=== PATIENT | male | born 1955 | race American Indian/Alaskan Native ===

== ENCOUNTER 2017-09-17 11:28 | Day surgery (SDC) | payer BC ==
[2017-09-17] MEDS ORDERED: DILAUDID IV PRN (12:56)
--- NOTE | 2017-09-17 12:58 | Anesthesia Consultation ---
Anesthesia Consult and Med Hx Date of service: 09/17/17 - Airway Anesthetic Teeth Evaluation: Good ROM Head & Neck: Adequate Mental/Hyoid Distance: Adequate Mallampati Class: Class II Intubation Access Assessment: Good - Pulmonary Exam CTA: Yes - Cardiac Exam Cardiac Exam: RRR - Pre-Operative Health Status ASA Pre-Surgery Classification: ASA3 Proposed Anesthetic Plan: General - Pulmonary Hx Smoking: No Hx Sleep Apnea: No (JAQUELIN PRE SCREEN HIGH RISK) - Cardiovascular System Hx Hypertension: Yes (X 10 YRS) - Endocrine Hx Hyperthyroidism: Yes (THYROID REMOVED , BUT ON NO MEDS NOW) - Other Systems Hx Cancer: No
--- NOTE | 2017-09-17 12:59 | Anesthesia Day of Surgery ---
Anesthesia Day of Surgery - Day of Surgery Patient Examined: Yes Patient H&P Reviewed: Yes Patient is NPO: Yes
[2017-09-17] MEDS ORDERED: VERSED IV NR (13:00)
[2017-09-17] MEDS ORDERED: LACTATED RINGERS 1,000 ML IV SCH (13:00)
[2017-09-17] MEDS ORDERED: FLAGYL 500 MG/100 ML 500 MG/100 ML BAG IV NR (13:16)
[2017-09-17] MEDS ORDERED: DIPRIVAN 10 MG/ML IV ONE (14:10)
[2017-09-17] MEDS ORDERED: XYLOCAINE MPF 2% ONE (14:10)
[2017-09-17] MEDS ORDERED: DILAUDID ONE (14:14)
[2017-09-17] MEDS ORDERED: QUELICIN ONE (14:33)
[2017-09-17] MEDS ORDERED: WATER FOR IRRIG STERILE IR ONE (15:19)
[2017-09-17] MEDS ORDERED: ZEMURON IV ONE (15:30)
[2017-09-17] MEDS ORDERED: ROBINUL ONE (15:36)
[2017-09-17] MEDS ORDERED: NEOSTIGMINE ONE (15:36)
--- NOTE | 2017-09-17 15:36 | Short Stay Summary ---
Short Stay Documentation Date of service: 09/17/17 - History H&P: obtained from office - Allergies and Medications Current Medications: Allergies Penicillins Allergy (Verified 09/15/17 12:32) Rash strawberry Allergy (Verified 09/15/17 12:32) Swelling Home Medications Medication Instructions Recorded Confirmed Last Taken Type Actos 45 mg PO DAILY 09/15/17 09/15/17 09/16/17 History Liraglutide [Victoza 2-Andrey] 1.2 mg SQ QDAY 09/15/17 09/15/17 09/16/17 History Lisinopril [Zestril TAB] 40 mg PO QDAY 09/15/17 09/15/17 09/17/17 09:30 History Metoprolol [Lopressor] 100 mg PO DAILY 09/15/17 09/15/17 09/17/17 09:30 History glipiZIDE XL [Glucotrol Xl] 4 mg PO QAM 09/15/17 09/15/17 09/16/17 History Active Medications Hydromorphone HCl (Dilaudid) 0.5 mg IV Q10MIN PRN PRN Reason: Pain , Severe (7-10) Lactated Ringer's (Lactated Ringers) 1,000 mls @ 42 mls/hr IV DIRECT ERON Last Admin: 09/17/17 13:10 Dose: 42 mls/hr Metronidazole (Flagyl 500 Mg/100 Ml) 500 mg in 100 mls @ 200 mls/hr IV PREOP NR Stop: 09/17/17 23:59 Midazolam HCl (Versed) 2 mg IV PREOP NR Stop: 09/17/17 23:59 Last Admin: 09/17/17 13:12 Dose: 2 mg - Brief post op/procedure progress note Date of procedure: 09/17/17 Pre-op diagnosis: stricture, phimosis (complicated) Post-op diagnosis: same Procedure: ysto, claireiu, circ Anesthesia: GETA Surgeon: LASHAWN PALMA Estimated blood loss: none Pathology: list (foreskin) Condition: stable - Hospital course Hospital course: francois on chart - Disposition Condition at discharge: Stable Disposition: DC-01 TO HOME OR SELFCARE Short Stay Discharge Plan Follow up with: FERNANDA YING MD [Primary Care Provider] - 7 Days
[2017-09-17] MEDS ORDERED: NORMODYNE IV ONE (15:55)
[2017-09-17] MEDS ORDERED: NORMODYNE IV PRN (16:01)
[2017-09-17 16:32] VITALS: BP 139/77
--- NOTE | 2017-09-17 17:18 | Post Anesthesia Evaluation ---
- Post Anesthesia Evaluation Patient Participated: Yes Airway Patent: Yes Stable Respiratory Function: Yes Nausea/Vomiting: No Temp > 96.8F: Yes Pain Manageable: Yes Adequeate Hydration: Yes Anesthesia Complications: No
--- NOTE | 2017-09-18 08:02 | Fluoroscopy Report ---
FLUORO RETROGRADE UROGRAPHY INDICATION: Urethral stricture. COMPARISON: None similar. FINDINGS: Total of 9 submitted fluoroscopic images. Procedure performed by Dr. Ochoa. 10 mL of Omnipaque 300 utilized. Initial oil scout radiographs obtained at 2:37 PM demonstrate lumbar degenerative spurring. Bilateral retrograde pyelograms demonstrate no focal suspicious filling defects, to the extent assessed, though left intrarenal collecting system opacification/distention suboptimal. Final images labeled "drainage" demonstrate small residual intrarenal collecting system contrast bilaterally as also some in the urinary bladder surrounding the catheter. Direct vision internal urethrotomy and circumcision performed. CONCLUSION: Intraoperative fluoroscopic assistance provided for direct vision internal urethrotomy, bilateral retrograde pyelogram and circumcision, as above. Please also correlate with procedural notes. Thank you for the opportunity to participate in this patient's care.
--- NOTE | 2017-09-19 23:45 | Operative Report ---
PREOPERATIVE DIAGNOSIS: Phimosis, urethral stricture. POSTOPERATIVE DIAGNOSIS: Phimosis, urethral stricture. PROCEDURE: Ureteroscopy, internal urethrotomy, bilateral retrograde pyelograms, circumcision. SURGEON: Dharmesh Ochoa MD ANESTHESIA: General. ESTIMATED BLOOD LOSS: Minimal. FLUIDS: Crystalloid. COMPLICATIONS: No complications. INDICATIONS: This patient is a 62-year-old gentleman seen in the office for phimosis and difficulty voiding. The patient had been seen several years prior, was noted to have similar symptoms. However, he relocated to [place], [place], for several years. He represents now for reevaluation and intervention. Risks, benefits, and complications were explained. The patient agreed to proceed with surgical intervention. DESCRIPTION OF PROCEDURE: The patient was taken to the operative suite, placed in a supine position. After adequate general anesthesia, placed in a dorsal lithotomy position, prepped and draped in a sterile fashion. Pancystourethroscopy was performed. Obvious bulbar stricture could be appreciated. 0.035 Glidewire was placed. A Wilder knife was used. A cut was made at the 12 o'clock position without difficulty. The scope was advanced into the bladder. The patient had a [id number] BPH. No tumors or stones could be appreciated in the bladder. Both ureteral orifices in normal position. Bilateral retrograde pyelograms were obtained with an 8 [place] catheter and 8 mL of contrast. No filling defects or obstruction. Due to the stricture and edema, left 16-Maldivian chilkoot tip catheter without difficulty. Attention was then taken to the foreskin, which was marked at the coronal ridge. The patient did have a fair amount of inflammation. A dorsal and ventral slit was made. The foreskin was circumferentially removed and sent for routine pathologic evaluation. Adequate hemostasis was achieved. The proximal and distal shaft skin was reapproximated, closed with 2-0 chromic in interrupted fashion. Due to the patient's size, I left the catheter; due to the patient's increased body mass index. A catheter was left indwelling as stated. Xeroform gauze was placed around the incision as well as [place]. His rectal exam was benign. He was extubated and taken to recovery room in stable condition. He will go home on [email or web address] and follow up in the office. JOB# [id number] EDGAR/NTS
== END 2017-09-17 17:33 | disposition home or self-care (01) ==
LOC: OR 11:28
PROVIDERS: ATTEND Urology
DX: N47.1 Phimosis (principal); N35.9 Urethral stricture, unspecified; N48.6 Induration penis plastica; I10 Essential (primary) hypertension; E03.9 Hypothyroidism, unspecified; Z88.0 Allergy status to penicillin; Z91.018 Allergy to other foods; Z79.899 Other long term (current) drug therapy
CPT/HCPCS: 52275; 54150; 74420; 82962; 88304; A4217; C1769; J0330; J1170; J2250; J2704; J2710; J7120; Q9967; 88302